=== PATIENT | male | born 1965 | race American Indian/Alaskan Native ===

== ENCOUNTER 2018-03-01 22:06 | Inpatient (IN) | payer MEDICAID, OTHER ==
[~2018-03-01] VITALS: Ht 180.3 cm; Wt 125.5 kg
[2018-03-01] MEDS ORDERED: adenosine 3mg/ml 2ml vial IV ONE ×2 (22:25)
--- NOTE | 2018-03-01 22:32 | NUR ---
6mg and 12mg adenosine unsuccessful in cardioversion.
--- NOTE | 2018-03-01 22:33 | NUR ---
Emergent cardioversion performed with 10mg adenosine 100j synchronized shock.
--- NOTE | 2018-03-01 22:35 | NUR ---
synchronized cardioversion appears to be successful with a sinus appearing rhythm on the 5 lead.
[2018-03-01] MEDS ORDERED: etomidate 2mg/ml inj. IV ONE (22:40)
[2018-03-01 22:43] LABS: BASOPHILS # (AUTO) 0.1 X10'3 (0-0.2); BASOPHILS % (AUTO) 0.9 % (0-1); EOSINOPHILS # (AUTO) 0.3 X10'3 (0-0.9); EOSINOPHILS % (AUTO) 2.7 % (0-6); HEMATOCRIT 52.9 % (42.0-52.0); HEMOGLOBIN 17.2 g/dl (14.0-17.9); LYMPHOCYTES % (AUTO) 33.9 % (21-51); MEAN CORPUSCULAR HEMOGLOBIN 30.2 PG (27.0-31.0); MEAN CORPUSCULAR HGB CONC 32.6 % (33.0-36.5); MEAN CORPUSCULAR VOLUME 92.7 FL (78-98); MONOCYTES # (AUTO) 1.2 X10'3 (0-0.9); NEUTROPHILS # (AUTO) 6.2 X10'3 (1.8-7.7); NEUTROPHILS % (AUTO) 52.5 % (42-75); PLATELET COUNT 298 X10'3 (140-440); RED BLOOD COUNT 5.71 X10'6 (4.70-6.10); RED CELL DISTRIBUTION WIDTH 13.3 % (11.5-14.5); WHITE BLOOD COUNT 11.8 X10'3 (4.5-11.0)
[2018-03-01 22:59] LABS: ALANINE AMINOTRANSFERASE 137 U/L (12-78); ALBUMIN/GLOBULIN RATIO 0.9 (1.1-1.5); ALKALINE PHOSPHATASE 102 IU/L (46-116); ANION GAP 15 (8-16); ASPARTATE AMINO TRANSFERASE 101 U/L (10-37); BILIRUBIN,TOTAL 0.8 MG/DL (0.1-1.0); BLOOD UREA NITROGEN 12 MG/DL (7-18); BUN/CREATININE RATIO 6.9 (5.4-32.0); CALCIUM 9.5 MG/DL (8.5-10.1); CHLORIDE 98 MMOL/L (99-107); CREATININE 1.74 MG/DL (0.60-1.10); GLUCOSE 213 MG/DL (70-104); POTASSIUM 3.3 MMOL/L (3.5-5.1); SODIUM 140 MMOL/L (135-145); TOTAL CARBON DIOXIDE 27.1 MMOL/L (24-32); TOTAL PROTEIN 8.3 G/DL (6.4-8.2); eGFR 41 ML/MIN
[2018-03-01 23:00] LABS: PARTIAL THROMBOPLASTIN TIME 28 SECONDS (22-32); PROTHROMBIN TIME 10.4 SECONDS (9.0-12.0)
[2018-03-01 23:16] LABS: MAGNESIUM 2.2 MG/DL (1.5-2.4)
[2018-03-02] VITALS (7 sets, daily range): BP systolic 95–117; BP diastolic 55–77
[2018-03-02 00:12] LABS: PLATELET ESTIMATE NORMAL; TOTAL CELLS COUNTED 100
[2018-03-02] MEDS ORDERED: potassium Cl 20 mEq SR tablet PO ONE (01:55)
[2018-03-02] MEDS ORDERED: aspirin 81mg tab.chew PO ONE (02:05)
[2018-03-02] MEDS ORDERED: enoxaparin 100mg/ml syringe SUBCUT ONE (02:05)
[2018-03-02] MEDS ORDERED: morphine 4 MG/ML inj SYRINge IV PRN (02:30)
[2018-03-02] MEDS ORDERED: HYDROmorphone 1 mg/ml syringe IV PRN (02:30)
[2018-03-02] MEDS ORDERED: acetaminophen 325mg tablet PO PRN ×2 (02:30)
[2018-03-02] MEDS ORDERED: diphenhydrAMINE 50 mg/ml inj IV PRN (02:30)
[2018-03-02] MEDS ORDERED: mag hydrox/Alum hydrox/simeth 30ml oral suspension PO PRN (02:30)
[2018-03-02] MEDS ORDERED: magnesium hydroxide 30ml (MOM) UD suspension PO PRN (02:30)
[2018-03-02] MEDS ORDERED: acetaminophen 650mg rectal suppository RC PRN (02:30)
[2018-03-02] MEDS ORDERED: ondansetron/PF 4mg/2ml inj IV PRN (02:30)
[2018-03-02] MEDS ORDERED: HYDROcodone/acetaminophen 10/325mg tab PO PRN (02:30)
[2018-03-02] MEDS ORDERED: metoclopramide 5 mg/ml inj IV PRN (02:30)
[2018-03-02] MEDS ORDERED: bisacodyl 10mg suppository rectal RC PRN (02:30)
[2018-03-02] MEDS ORDERED: diphenhydrAMINE 25mg capsule PO PRN (02:30)
[2018-03-02] MEDS ORDERED: glucagon, human recombinant 1mg kit SUBCUT PRN (02:35)
[2018-03-02] MEDS ORDERED: MESSAGE TO PHARMACY PO ONE (02:35)
[2018-03-02] MEDS ORDERED: insulin Lispro (HumaLOG) vial - multi-dose SQ SCH (02:35)
[2018-03-02] MEDS ORDERED: potassium Cl 20 mEq SR tablet PO PRN ×2 (02:35)
[2018-03-02] MEDS ORDERED: dextrose 50%-water 50ml dispensing syringe IV PRN ×2 (02:35)
[2018-03-02] MEDS ORDERED: dextrose ORAL solution 15 GM/59 ML bottle PO PRN ×2 (02:35)
[2018-03-02] MEDS ORDERED: normal saline 1000ml 1,000 ML IVB ONE (02:36)
--- NOTE | 2018-03-02 03:10 | NUR ---
Patient arrived on floor via wheelchair from ED after receiving report from Arturo POOLE. Patient ambulated to bed with minimal assistance, vitals taken, placed on monitor worker and oriented to room. Belongings accompanied patient
[2018-03-02 03:29] LABS: PHOSPHORUS 3.6 MG/DL (2.3-4.5)
[2018-03-02] MEDS: K, MAG and/or Phos replacement - Verify level? MC SCH ×2 (05:14→08:00)
[2018-03-02] MEDS: normal saline 1000ml 1,000 ML IV SCH ×3 (05:14→21:52)
[2018-03-02 05:46] LABS: D-DIMER 1.39 MG/L FEU (0-0.50)
[2018-03-02] MEDS ORDERED: normal saline 500ml IV soln 500 ML IV ONE (06:00)
--- NOTE | 2018-03-02 06:00 | NUR ---
NOC SHIFT RN GAVE NS BOLUS
--- NOTE | 2018-03-02 06:51 | NUR ---
Patient in room PCU 3023. I have received report from VIRGILIO DUQUE and had the opportunity to ask questions and assume patient care.
[2018-03-02] MEDS: aspirin 81mg tab.chew PO SCH (07:33)
[2018-03-02] MEDS: docusate sod 100mg capsule PO SCH ×2 (07:33→19:16)
[2018-03-02] MEDS: pantoprazole 40mg Tablet.DR PO SCH (07:33)
[2018-03-02] MEDS: metoprolol tartrate 12.5mg (1/2 tablet) PO SCH ×2 (07:38→20:00)
[2018-03-02] MEDS: lisinopril 5mg tablet PO SCH (07:38)
--- NOTE | 2018-03-02 07:45 | NUR ---
paged dr. cinthya walker [facility] [phone] Yaya having bursts of svt 4beat run of vtach pt asymptomatic, am meds given
--- NOTE | 2018-03-02 07:51 | NUR ---
per dr. mendes cmp and phos ordered
[2018-03-02 08:08] LABS: ALANINE AMINOTRANSFERASE 114 U/L (12-78); ALBUMIN 3.4 G/DL (3.4-5.0); ALBUMIN/GLOBULIN RATIO 0.9 (1.1-1.5); ALKALINE PHOSPHATASE 77 IU/L (46-116); ANION GAP 9 (8-16); ASPARTATE AMINO TRANSFERASE 98 U/L (10-37); BILIRUBIN,TOTAL 0.5 MG/DL (0.1-1.0); BLOOD UREA NITROGEN 15 MG/DL (7-18); BUN/CREATININE RATIO 9.8 (5.4-32.0); CALCIUM 8.8 MG/DL (8.5-10.1); CHLORIDE 104 MMOL/L (99-107); CREATININE 1.53 MG/DL (0.60-1.10); GLUCOSE 107 MG/DL (70-104); POTASSIUM 4.3 MMOL/L (3.5-5.1); SODIUM 139 MMOL/L (135-145); TOTAL CARBON DIOXIDE 26.1 MMOL/L (24-32); TOTAL PROTEIN 7.1 G/DL (6.4-8.2); eGFR 48 ML/MIN
[2018-03-02] MEDS ORDERED: etomidate 2mg/ml inj. ONE (09:00)
[2018-03-02] MEDS ORDERED: adenosine 3mg/ml 2ml vial IV ONE (09:00)
--- NOTE | 2018-03-02 09:36 | NUR ---
PAGED DR. BEATRIS [facility] [phone] MARCUS HAS HAD 3 RUNS OF VTACH THIS AM 4 BEAT 4 BEAT 5 BEAT, LAST SVT 0815
[2018-03-02] MEDS ORDERED: FLU VACC QUAD 2018(5 YR UP)/PF 60 MCG/0.5 ML SYRINGE IM ONE (10:00)
[2018-03-02] MEDS: nitroGLYCERIN 0.1mg/hour patch TD SCH (11:36)
[2018-03-02 12:20] LABS: CLARITY,URINE CLEAR (Clear); COLOR,URINE YELLOW (Yellow); GLUCOSE, URINE NEGATIVE (Neg); KETONES,URINE NEGATIVE (Neg); LEUKOCYTE ESTERASE ,URINE NEGATIVE (Neg); NITRITES, URINE NEGATIVE (Neg); OCCULT BLOOD,URINE TRACE-INTACT (Neg); PH,URINE 5.5 (4.8-8.0); PROTEIN,URINE 100 mg/dl (Neg); UROBILINOGEN,URINE 0.2 E.U/dL (0.2-1.0)
[2018-03-02 12:21] LABS: UA COLLECTION TYPE VOIDED
--- NOTE | 2018-03-02 12:29 | NUR ---
PAGED , BEATRIS SU [facility] [phone] TROPONIN 11.14 PT WOULD LIKE A DIET IF POSSIBLE. THANKS
[2018-03-02 12:31] LABS: URINE AMPHETAMINE SCREEN POSITIVE (Neg); URINE BARBITUATE SCREEN NEGATIVE (Neg); URINE BENZODIAZEPINES SCREEN NEGATIVE (Neg); URINE CANNABINOID SCREEN NEGATIVE (Neg); URINE COCAINE SCREEN NEGATIVE (Neg); URINE METHADONE SCREEN NEGATIVE (Neg); URINE OPIATE SCREEN NEGATIVE (Neg); URINE PHENCYCLIDINE SCREEN NEGATIVE (Neg)
[2018-03-02 12:35] LABS: BACTERIA,URINE FEW /HPF (Neg); MUCUS STRANDS FEW /LPF (Neg); RBC,URINE 0-2 /HPF (0-2); SQUAMOUS EPITHELIAL CELL,UR FEW /LPF (FEW); WBC,URINE 0-4 /HPF (0-4)
--- NOTE | 2018-03-02 17:05 | NUR ---
paged dr. mendes PAGER ID: [phone] MESSAGE: Dionna [facility] [phone] Yaya would like dinner, can we have diet order? cardiology has not seen him
--- NOTE | 2018-03-02 18:21 | NUR ---
Problems reprioritized. Patient report given, questions answered & plan of care reviewed with jeanne willard sbar and bedside.
[2018-03-02] MEDS: enoxaparin 100mg/ml syringe SUBCUT SCH (19:21)
[2018-03-02] MEDS: enoxaparin 30mg/0.3ml syringe SUBCUT SCH (19:22)
--- NOTE | 2018-03-02 20:00 | NUR ---
Held Lopressor due to decreased blood pressure 107/53
[2018-03-02] MEDS ORDERED: temazepam 15mg capsule PO PRN (21:00)
--- NOTE | 2018-03-03 01:15 | NUR ---
Patient in room PCU 3023. I have received report from Dionna POOLE and had the opportunity to ask questions and assume patient care.
[2018-03-03 03:00] VITALS: BP 148/77
[2018-03-03 05:26] LABS: BASOPHILS # (AUTO) 0.1 X10'3 (0-0.2); BASOPHILS % (AUTO) 0.9 % (0-1); EOSINOPHILS # (AUTO) 0.2 X10'3 (0-0.9); EOSINOPHILS % (AUTO) 2.9 % (0-6); HEMATOCRIT 43.4 % (42.0-52.0); HEMOGLOBIN 14.5 g/dl (14.0-17.9); LYMPHOCYTES # (AUTO) 2.4 X10'3 (1.1-4.8); LYMPHOCYTES % (AUTO) 29.5 % (21-51); MEAN CORPUSCULAR HEMOGLOBIN 30.6 PG (27.0-31.0); MEAN CORPUSCULAR HGB CONC 33.3 % (33.0-36.5); MEAN CORPUSCULAR VOLUME 91.8 FL (78-98); MEAN PLATELET VOLUME 8.9 FL (7.4-10.4); MONOCYTES # (AUTO) 0.9 X10'3 (0-0.9); NEUTROPHILS # (AUTO) 4.4 X10'3 (1.8-7.7); NEUTROPHILS % (AUTO) 55.7 % (42-75); PLATELET COUNT 255 X10'3 (140-440); RED BLOOD COUNT 4.73 X10'6 (4.70-6.10); RED CELL DISTRIBUTION WIDTH 13.2 % (11.5-14.5)
[2018-03-03 05:45] LABS: ALBUMIN 3.2 G/DL (3.4-5.0); ANION GAP 10 (8-16); BILIRUBIN,TOTAL 0.6 MG/DL (0.1-1.0); BLOOD UREA NITROGEN 13 MG/DL (7-18); BUN/CREATININE RATIO 10.2 (5.4-32.0); CALCIUM 8.3 MG/DL (8.5-10.1); CHLORIDE 103 MMOL/L (99-107); CREATININE 1.27 MG/DL (0.60-1.10); GLUCOSE 100 MG/DL (70-104); SODIUM 139 MMOL/L (135-145); TOTAL CARBON DIOXIDE 26.5 MMOL/L (24-32); TOTAL PROTEIN 6.8 G/DL (6.4-8.2); eGFR 59 ML/MIN
[2018-03-03 05:46] LABS: ALANINE AMINOTRANSFERASE 93 U/L (12-78); ALBUMIN/GLOBULIN RATIO 0.9 (1.1-1.5); ALKALINE PHOSPHATASE 65 IU/L (46-116); ASPARTATE AMINO TRANSFERASE 72 U/L (10-37); CHOL/HDL RATIO 4.4 (0.00-4.99); CHOLESTEROL 142 MG/DL (0-200); HDL CHOLESTEROL 32 MG/DL (35-60); LDL CHOLESTEROL 92 MG/DL (50-100); TRIGLYCERIDES 122 MG/DL (20-135)
[2018-03-03 06:00] VITALS: BP 121/73
--- NOTE | 2018-03-03 06:20 | NUR ---
Patient in room PCU 3023. I have received report from DUNIA POLOE and had the opportunity to ask questions and assume patient care.
--- NOTE | 2018-03-03 06:22 | NUR ---
[place] documentation: I have reviewed and agree with all interventions, assessments performed and documented by Simon POOLE.
--- NOTE | 2018-03-03 06:23 | NUR ---
Problems reprioritized. Patient report given, questions answered & plan of care reviewed with Shantanu POOLE.
--- NOTE | 2018-03-03 06:24 | NUR ---
[place] Medication Administration: For this medication-pass time frame, all medication were reviewed, dispensed, administered and documented per hospital policy by Delfino POOLE.
[2018-03-03] MEDS: K, MAG and/or Phos replacement - Verify level? MC SCH (08:00)
--- NOTE | 2018-03-03 08:41 | NUR ---
PAGER ID: [phone] MESSAGE: EDISON [phone] RE: MARCUS [phone] CAN I HOLD NITRO PATCH, NO CP, DROPPED BP TO LOW TO GIVE METOPROLOL YESTERDAY?
[2018-03-03 08:43] VITALS: BP 146/79
[2018-03-03] MEDS: pantoprazole 40mg Tablet.DR PO SCH (09:00)
[2018-03-03] MEDS: aspirin 81mg tab.chew PO SCH (09:00)
[2018-03-03] MEDS: docusate sod 100mg capsule PO SCH ×2 (09:01→19:42)
[2018-03-03] MEDS: lisinopril 5mg tablet PO SCH (09:01)
[2018-03-03] MEDS: atorvastatin 20mg tablet PO SCH (09:01)
[2018-03-03] MEDS: metoprolol tartrate 12.5mg (1/2 tablet) PO SCH ×2 (09:01→19:42)
[2018-03-03] MEDS: enoxaparin 30mg/0.3ml syringe SUBCUT SCH ×2 (09:01→19:43)
[2018-03-03] MEDS: normal saline 1000ml 1,000 ML IV SCH ×2 (09:02→19:30)
[2018-03-03] MEDS: nitroGLYCERIN 0.1mg/hour patch TD SCH (09:02)
[2018-03-03] MEDS: enoxaparin 100mg/ml syringe SUBCUT SCH ×2 (09:02→19:43)
[2018-03-03 11:00] VITALS: BP 140/80
[2018-03-03 18:00] VITALS: BP 144/77
--- NOTE | 2018-03-03 18:10 | NUR ---
Problems reprioritized. Patient report given, questions answered & plan of care reviewed with BENJAMIN POOLE.
--- NOTE | 2018-03-03 18:15 | NUR ---
Patient in room PCU 3023. I have received report from Shantanu POOLE and had the opportunity to ask questions and assume patient care.
[2018-03-03 22:00] VITALS: BP 145/79
[2018-03-04 02:08] VITALS: BP 143/87
[2018-03-04] MEDS: normal saline 1000ml 1,000 ML IV SCH (04:29)
[2018-03-04 06:00] VITALS: BP 105/75
[2018-03-04 06:17] LABS: BASOPHILS # (AUTO) 0.1 X10'3 (0-0.2); EOSINOPHILS # (AUTO) 0.2 X10'3 (0-0.9); EOSINOPHILS % (AUTO) 3.5 % (0-6); HEMATOCRIT 45.4 % (42.0-52.0); HEMOGLOBIN 14.9 g/dl (14.0-17.9); LYMPHOCYTES # (AUTO) 2.6 X10'3 (1.1-4.8); LYMPHOCYTES % (AUTO) 38.4 % (21-51); MEAN CORPUSCULAR HGB CONC 32.8 % (33.0-36.5); MEAN CORPUSCULAR VOLUME 91.3 FL (78-98); MONOCYTES # (AUTO) 0.9 X10'3 (0-0.9); MONOCYTES % (AUTO) 12.5 % (2-12); NEUTROPHILS % (AUTO) 44.6 % (42-75); PLATELET COUNT 237 X10'3 (140-440); RED BLOOD COUNT 4.97 X10'6 (4.70-6.10); RED CELL DISTRIBUTION WIDTH 13.1 % (11.5-14.5); WHITE BLOOD COUNT 6.9 X10'3 (4.5-11.0)
--- NOTE | 2018-03-04 06:26 | NUR ---
Problems reprioritized. Patient report given, questions answered & plan of care reviewed with Dana POOLE.
[2018-03-04 06:34] LABS: ALANINE AMINOTRANSFERASE 79 U/L (12-78); ALBUMIN 3.1 G/DL (3.4-5.0); ALBUMIN/GLOBULIN RATIO 0.8 (1.1-1.5); ALKALINE PHOSPHATASE 66 IU/L (46-116); ANION GAP 9 (8-16); ASPARTATE AMINO TRANSFERASE 53 U/L (10-37); BILIRUBIN,TOTAL 0.7 MG/DL (0.1-1.0); BLOOD UREA NITROGEN 12 MG/DL (7-18); CALCIUM 8.4 MG/DL (8.5-10.1); CHLORIDE 101 MMOL/L (99-107); GLUCOSE 100 MG/DL (70-104); POTASSIUM 3.8 MMOL/L (3.5-5.1); SODIUM 138 MMOL/L (135-145); TOTAL CARBON DIOXIDE 28.5 MMOL/L (24-32); eGFR 78 ML/MIN
--- NOTE | 2018-03-04 06:35 | NUR ---
Patient in room PCU 3023. I have received report from Richy POOLE and had the opportunity to ask questions and assume patient care. Pt. sleep and appears to be in no distress at time of distress.
[2018-03-04] MEDS: K, MAG and/or Phos replacement - Verify level? MC SCH (08:00)
[2018-03-04] MEDS: nitroGLYCERIN 0.1mg/hour patch TD SCH (08:00)
[2018-03-04] MEDS: lisinopril 5mg tablet PO SCH (09:03)
[2018-03-04] MEDS: aspirin 81mg tab.chew PO SCH (09:03)
[2018-03-04] MEDS: metoprolol tartrate 12.5mg (1/2 tablet) PO SCH (09:05)
[2018-03-04] MEDS: atorvastatin 20mg tablet PO SCH (09:06)
[2018-03-04] MEDS: pantoprazole 40mg Tablet.DR PO SCH (09:07)
[2018-03-04] MEDS: docusate sod 100mg capsule PO SCH (09:07)
[2018-03-04] MEDS: enoxaparin 30mg/0.3ml syringe SUBCUT SCH (09:08)
[2018-03-04] MEDS: enoxaparin 100mg/ml syringe SUBCUT SCH (09:11)
[2018-03-04] MEDS ORDERED: PANT40TA4 PO (10:42)
[2018-03-04] MEDS ORDERED: ASPI-1265 PO (10:42)
[2018-03-04] MEDS ORDERED: LISI-642 PO (10:42)
[2018-03-04] MEDS ORDERED: METO25TA6 PO (10:42)
[2018-03-04 11:00] VITALS: BP 139/96
[2018-03-04] MEDS ORDERED: NITR0.4T51 SL (11:56)
[2018-03-04 15:00] VITALS: BP 146/86
--- NOTE | 2018-03-04 15:25 | NUR ---
Removed pt.s monitor and IV, pt tolerated well. Pt accompanied by girlfriend and family friend. Pt wheeled down to private vehicle via a nurses aide in stable condition and with belongings. Pt. educated on drug abuse and how it affects the heart. Pt no longer on the floor.
== END 2018-03-04 15:40 | disposition home or self-care (01) | DRG 190 ==
LOC: ER 22:07 → ED HOLD 03-02 02:29 → PCU 3S 03-02 02:55
PROVIDERS: ADMIT Family Medicine; ATTEND Internal Medicine
PROC: 5A2204Z Restoration of Cardiac Rhythm, Single (ICD-10-PCS; principal; 2018-03-01)
PROC: 3E02340 Introduction of Influenza Vaccine into Muscle, Percutaneous Approach (ICD-10-PCS; 2018-03-02)
DX: I21.4 Non-ST elevation (NSTEMI) myocardial infarction (principal); N17.0 Acute kidney failure with tubular necrosis; E86.0 Dehydration; I47.1 Supraventricular tachycardia; E78.5 Hyperlipidemia, unspecified; E87.6 Hypokalemia; F15.10 Other stimulant abuse, uncomplicated; E11.65 Type 2 diabetes mellitus with hyperglycemia; K73.9 Chronic hepatitis, unspecified; E66.9 Obesity, unspecified; R94.5 Abnormal results of liver function studies; Z23 Encounter for immunization; Z79.899 Other long term (current) drug therapy; Z71.51 Drug abuse counseling and surveillance of drug abuser; Z68.38 Body mass index [BMI] 38.0-38.9, adult
CPT/HCPCS: 36415; 71045; 80053; 80061; 80305; 81001; 82948; 83036; 83690; 83735; 83880; 84100; 84443; 84484; 85025; 85379; 85610; 85730; 87070; 92960; 93005; 93306; 94760; 96372; 96374; 99285; G0378; J0153; J1650; J3490; J7030; Q2037